=== PATIENT | female | born 1980 | race Caucasian/White ===

== ENCOUNTER → 2018-06-23 | Outpatient (CLI) | payer OTHER ==
[~2018-06-23] MED LIST: LBT100 PO; PRENTAB26 PO
[2018-06-23 11:24] LABS: ALBUMIN 3.8 gm/dl (3.4-5.0); ALKALINE PHOSPHATASE 39 U/L (45-117); ALT/SGPT 19 U/L (12-78); AST/SGOT 16 U/L (15-37); BLOOD UREA NITROGEN 12 mg/dl (7-18); CALCIUM 8.5 mg/dl (8.5-10.1); CARBON DIOXIDE 28 mmol/L (21-32); CHOLESTEROL 182 mg/dl (0-200); CREATININE 0.74 mg/dl (0.60-1.20); GLUCOSE 82 mg/dl (70-99); LDL CHOLESTEROL CALCULATED 114 mg/dl; POTASSIUM 3.7 mmol/L (3.5-5.1); SODIUM 139 mmol/L (136-145); TOTAL PROTEIN 7.3 gm/dl (6.4-8.2)
== END | disposition home or self-care (01) ==
LOC: C.LAB1850 09:34
PROVIDERS: ATTEND Nurse Practitioner Family
DX: I10 Essential (primary) hypertension (principal); Z13.220 Encounter for screening for lipoid disorders; Z13.1 Encounter for screening for diabetes mellitus

== ENCOUNTER 2020-11-29 17:26 | Inpatient (IN) ==
[2020-11-29] MEDS ORDERED: OXYTOCIN 30 UNITS/500 ML BAG IV PRN ×2 (18:07→18:45)
[2020-11-29] MEDS ORDERED: LABETALOL HCL IV 5 MG/ML 20ML IV STA ×2 (18:07→18:12)
[2020-11-29] MEDS ORDERED: PENICILLIN G POTASSIUM 3 MU in DEXTROSE 5% 100 ML IV PRN (18:09)
[2020-11-29] MEDS ORDERED: PENICILLIN G POTASSIUM 6 MU in DEXTROSE 5% 250 ML IV ONE (18:30)
[2020-11-29 18:41] LABS: Hematocrit (blood only) 31.4 % (37-47); Hemoglobin 10.3 g/dL (12.0-16.0); Mean Corpuscular Hemoglobin 28.3 pg (25-34); Mean Corpuscular Hgb Conc 32.8 g/dL (32-36); Mean Corpuscular Volume 86.3 fL (80-100); Mean Platelet Volume 9.9 fL (7.4-10.4); Platelet Count 328 K/uL (130-400); RDW Coefficient of Variation 12.9 % (11.5-14.5); RDW Standard Deviation 40.2 fL (36.4-46.3); Red Blood Count 3.64 M/uL (4.2-5.4); White Blood Count 11.12 K/uL (4.8-10.8)
[2020-11-29] MEDS ORDERED: MAG SULFATE 6GM BOLUS FROM BAG IV ONE (18:45)
--- NOTE | 2020-11-29 19:00 | History & Physical Report ---
Date of Service November 29, 2020 Assessment & Plan (1) Chronic hypertension affecting : (2) Severe pre-eclampsia in third trimester: 39yo at 37.4 weeks GA. cHTN with superimposed PreEclampsia with severe features. 1. Fetus: Cat 1 2: Labor: IOL for severe PIH. Pit/Guardado 3. PIH: Discussed mgso4 which she is agreeable with. IV labetalol 20mg now followed by normal daily po dose of 200mg BID. Labs pending 4: GBS positive: PCN 6: Rh negative: Rhogam eval PP 7: PPH: Moderate risk: Type and screen ordered (3) Carrier of group B Streptococcus: (4) Need for rhogam due to Rh negative mother: (5) Supervision of high risk , antepartum: History of Present Illness Primary Care Provider: Faith Crews MD 39yo at 37.4 weeks GA. Presents for extended monitoring and was noted to have persistent severe range BPs. She is also reporting LORD and has 1+ urine protein dip. complicated be chronic HTN on labetalol, AMA, Rh Negative, and GBS positive. OB Labs: Blood Type A Negative 05/02/20 Antibody Screen NEGATIVE 09/26/20 Hemoglobin 10.1 g/dL (12.0-16.0) L 10/28/20 Hematocrit 31.2 % (37-47) L 10/28/20 Mean Corpuscular Volume 89.4 fL (80-100) 10/28/20 Platelet Count 350 K/uL (130-400) 10/28/20 Rubella IgG Antibody Immune (Immune) 05/02/20 Rapid Plasma Reagin Nonreactive (Nonreactive) 05/02/20 Hepatitis B Surface Antigen Neg (Neg) 05/02/20 HIV (1&2) Ab and P24 Ag, 4th Gener Neg (Neg) 05/02/20 Glucose 1 Hour 50 gm Load 127 mg/dl (70-130) 09/26/20 OB Optional Labs: Chlamydia trachomatis RNA NOT DETECTED (NOT DETECTED) 04/30/20 Neisseria gonorrhoeae RNA NOT DETECTED (NOT DETECTED) 04/30/20 Thyroid Stimulating Hormone (TSH) 2.930 uIu/ml (0.300-4.500) 06/23/18 Allergies Allergy/AdvReac Type Severity Reaction Status Date / Time No Known Drug Allergies Allergy Unknown Verified 11/29/20 17:39 Home Medications Medication Instructions Recorded Confirmed Type prenat.vits,carlos,[id number] 1 tab PO DAILY 04/25/20 11/29/20 History aspirin [Aspir-81] 81 mg PO DAILY 10/25/20 11/29/20 History ferrous sulfate [Iron (ferrous 325 mg PO DAILY 10/25/20 11/29/20 History sulfate)] labetalol 200 mg PO BID 11/29/20 History Patient History Medical History (Updated 11/29/20 @ 18:54 by Vijay Smith MD) Conductive hearing loss of right ear with unrestricted hearing of left ear Encounter for anatomic survey History of kidney stones Hypertension Supervision of elderly multigravida Surgical History (Updated 11/29/20 @ 17:39 by Marcia Horton RN) H/O lithotripsy History of ankle surgery History of myringotomy History of tooth extraction Family History (Updated 04/25/20 @ 08:52 by Nunu Cordoba) Grandfather Myocardial infarction Father Prostate cancer Hypertension Migraine Family history of identical twins Mother Hypertension Dyslipidemia Brother No problems noted. Brother No problems noted. Brother No problems noted. Sister Hypertension Sister No problems noted. Other No family history of adverse response to anesthesia No family history of bleeding disorder Denies family history of Ovarian cancer Breast cancer Colorectal cancer Social History (Updated 04/25/20 @ 10:17 by Nunu Cordoba) Smoking Status: Never smoker Second Hand Exposure: No; Hx Alcohol Use: No Hx Substance Use: No Preferred Language: Ghanaian Communication Ability: Effective Visual Impairment: No Limitations Hearing Ability: Normal Operations Lead Required: No Beliefs That Will Affect Care: None marital status: marital status details: Jaspreet (39) [phone] Current Living Situation: Spouse and Family Current Living Situation Comment: lives with spouse, 4 children, no pets current occupational status: unemployed Other Information That Helps Us Care for You: No Feels Safe at Home: Yes Safety Concerns: Feels Safe At This Time Childhood Exposure to Second-Hand Smoke: No Dental Care, Regularly: Yes Physical Activity Frequency: Daily Seatbelt Use: always Sunscreen Use: Yes Assistive Devices: None Physical Exam Constitutional: WD/WN, vitals as above Respiratory: normal respiratory effort; no respiratory distress, no labored breathing and no retractions Cardiovascular: Rate/Rhythm: regular rate; not bradycardic and not tachycardic Gastrointestinal (Abdomen): Inspection/Auscultation: abdomen normal to insp ection Percussion/Palpation: abdomen soft; abdomen nontender, no guarding and abdomen not rigid Neurologic: patellar DTR's 2+ bilat, sensation intact Psychiatric: A+Ox3, euthymic affect Genitourinary: OB Exam Abdomen: + vertex (By US) Manual OB Exam: + cervical dilation (1.5), + cervical effacement 50% and + station -2 OB Exam Monitor Tracing: + external FHT monitor used, + external uterine monitor used, + category I and + normal FHT variability; no early decelerations present, no late decelerations present and no variable decelerations Results & Data ([facility]) Vital Signs (Past 12 Hours) Vital Signs Temp Pulse BP 11/29/20 18:18 78 183/104 H 11/29/20 18:07 76 174/101 H 11/29/20 17:58 73 199/107 H 11/29/20 17:47 36.6 C 78 188/109 H 11/29/20 17:35 80 180/113 H Coding Level of Care Code None Diagnoses Chronic hypertension affecting O10.919 Severe pre-eclampsia in third trimester O14.13 Carrier of group B Streptococcus Z22.330 Need for rhogam due to Rh negative mother Z29.13 Supervision of high risk , antepartum O09.90
[2020-11-29 19:01] LABS: Albumin Level 2.7 gm/dl (3.4-5.0); BUN Creatinine Ratio 19.2 (10-20); Calcium 8.5 mg/dl (8.5-10.1); Creatinine Clr Calc Pharmacy 119.1 ml/min; Est GFR (African American) 132.6; Est GFR (Non-African American) 114.4; Potassium 3.7 mmol/L (3.5-5.1)
[2020-11-29 19:04] LABS: Albumin Globulin Ratio 0.7 (0.9-2); Bilirubin,Total 0.3 mg/dl (0.2-1); Total Protein 6.7 gm/dl (6.4-8.2)
[2020-11-29] MEDS: LABETALOL HCL 200 MG TAB PO SCH (19:09)
[2020-11-29] MEDS: MAGNESIUM SULFATE / WTR 40 GM/1,000 ML BAG IV SCH (19:21)
[2020-11-29] MEDS: LACTATED RINGER'S 1,000 ML IV PRN (19:21)
[2020-11-29] MEDS: ONDANSETRON INJ 2 MG/ML 2 ML VIAL IV PRN (19:43)
[2020-11-29 20:27] LABS: Protein Creatinine Ratio Urine 0.6 (0-0.2); Total Protein Urine Random 54.6 mg/dl (0-11.9)
[2020-11-29] MEDS ORDERED: LABETALOL HCL 200 MG TAB PO SCH (21:00)
[2020-11-29] MEDS ORDERED: BUPIVACAINE 0.25% 30 ML VIAL ONE (21:51)
[2020-11-29] MEDS ORDERED: ePHEDrine sulfate 50 MG/ML AMP ONE (21:51)
[2020-11-29] MEDS ORDERED: SODIUM CHLORIDE 0.9% INJ 10 ML VIAL ONE (21:51)
[2020-11-29] MEDS ORDERED: fentaNYL 2MCG/ML ROPIVACAINE 1.25MG/ML 100 ML BAG EPI ONE (21:51)
[2020-11-29] MEDS ORDERED: fentaNYL citrate 100 MCG/2 ML VIAL ONE (21:51)
[2020-11-29] MEDS ORDERED: NALOXONE HCL 1 MG in SODIUM CHLORIDE 0.9% 1000ML 1,000 ML IV PRN (21:56)
[2020-11-29] MEDS ORDERED: ONDANSETRON INJ 2 MG/ML 2 ML VIAL IV PRN (21:56)
[2020-11-29] MEDS ORDERED: fentaNYL 2MCG/ML ROPIVACAINE 1.25MG/ML 100 ML BAG EPI PRN (21:56)
[2020-11-29] MEDS ORDERED: NALOXONE HCL 0.4 MG/1 ML VIAL/CARP IV PRN (21:56)
[2020-11-29] MEDS ORDERED: diphenhydrAMINE 50 MG/ML VIAL IV PRN (21:56)
[2020-11-29] MEDS ORDERED: ePHEDrine sulfate 50 MG/ML AMP IV PRN (21:56)
--- NOTE | 2020-11-29 21:59 | Anesthesiology Consultation ---
Date of Service November 29, 2020 Assessment & Plan (1) Encounter for pre-operative examination: Chart Review Chart Review: Patient NOT seen in Pre Admission Testing and Acceptable Risk for Labor Epidural Consults Requested none History Height/Weight Height: 5 ft 4 in Weight: 71.214 kg Allergies Allergy/AdvReac Type Severity Reaction Status Date / Time No Known Drug Allergies Allergy Unknown Verified 11/29/20 17:39 Medications Home Medications Medication Instructions Recorded Confirmed Last Taken prenat.vits,carlos,[id number] 1 tab PO DAILY 04/25/20 11/29/20 11/28/20 07:00 aspirin [Aspir-81] 81 mg PO DAILY 10/25/20 11/29/20 11/28/20 07:00 ferrous sulfate [Iron (ferrous 325 mg PO DAILY 10/25/20 11/29/20 11/29/20 07:00 sulfate)] labetalol 200 mg PO BID 11/29/20 11/29/20 07:00 Active Medications Generic Name Dose Route Start Last Admin Trade Name Freq PRN Reason Stop Dose Admin Lactated Ringer's 1,000 mls @ 125 mls/hr 11/29/20 18:07 11/29/20 22:05 Lr IV 12/01/20 18:06 75 mls/hr .Q8H PRN Infusion L&D Protocol Protocol Oxytocin 30 units in 500 mls @ 6 mls/hr 11/29/20 18:45 11/29/20 21:15 Pitocin IV 12/01/20 18:44 0.36 units/hr .Q24H PRN 6 mls/hr Labor Induction/Augmentation Titration Protocol 0.36 UNITS/HR Magnesium Sulfate 40 gm in 1,000 mls @ 50 mls/hr 11/29/20 18:45 11/29/20 19:52 Magnesium Sulfate / Wtr IV 12/29/20 18:44 50 mls/hr .Q20H DAO Infusion Labetalol HCl 200 mg 11/29/20 18:30 11/29/20 19:09 Labetalol Hcl 200 Mg Tab PO 12/29/20 18:29 200 mg BID DAO Administration Ondansetron HCl 4 mg 11/29/20 19:33 11/29/20 19:43 Ondansetron Inj 2 Mg/Ml 2 Ml Vial IV 12/29/20 19:32 4 mg Q4H PRN Administration Nausea Past Medical History Medical History Conductive hearing loss of right ear with unrestricted hearing of left ear Encounter for anatomic survey History of kidney stones Hypertension Supervision of elderly multigravida Exercise / Class Metabolic Activity II 4-5 Yardwork/Stairs/Walk up hill Past Family History Family History Grandfather Myocardial infarction Father Prostate cancer Hypertension Migraine Family history of identical twins Mother Hypertension Dyslipidemia Brother No problems noted. Brother No problems noted. Brother No problems noted. Sister Hypertension Sister No problems noted. Other No family history of adverse response to anesthesia No family history of bleeding disorder Denies family history of Ovarian cancer Breast cancer Colorectal cancer Past Surgical History Surgical History H/O lithotripsy History of ankle surgery History of myringotomy History of tooth extraction Past Anesthesia History No Hx of Anesthesia Complications and No Family Hx of Anesthesia Complications History of PONV No Hx of PONV Social History Smoking Status: Never smoker Hx Alcohol Use: No Hx Substance Use: No Physical Exam Vital Signs Last Vital Signs Temp 37.1 C 11/29/20 19:05 Pulse 77 11/29/20 22:27 Resp 18 11/29/20 22:05 BP 160/82 H 11/29/20 22:27 Pulse Ox 99 11/29/20 22:24 Testing Laboratory Results 11/29/20 18:24 11/29/20 18:24 Blood Type A Negative 11/29/20 18:24 Antibody Screen NEGATIVE 11/29/20 18:24
[2020-11-30 00:41] LABS: Hematocrit (blood only) 31.4 % (37-47); Hemoglobin 10.3 g/dL (12.0-16.0); Mean Corpuscular Hemoglobin 28.4 pg (25-34); Mean Corpuscular Hgb Conc 32.8 g/dL (32-36); Mean Corpuscular Volume 86.5 fL (80-100); Mean Platelet Volume 9.7 fL (7.4-10.4); Platelet Count 324 K/uL (130-400); RDW Coefficient of Variation 12.9 % (11.5-14.5); RDW Standard Deviation 40.1 fL (36.4-46.3); Red Blood Count 3.63 M/uL (4.2-5.4); White Blood Count 13.85 K/uL (4.8-10.8)
--- NOTE | 2020-11-30 00:52 | Labor Progress Brief Note ---
Date of Service November 30, 2020 Subjective Reason For Note: Routine Evaluation Assessment & Plan (1) Chronic hypertension affecting : (2) Severe pre-eclampsia in third trimester: 39yo at 37.4 weeks GA. cHTN with superimposed PreEclampsia with severe features. 1. Fetus: Cat 1 2: Labor: IOL for severe PIH. [place] 3. PIH: Discussed mgso4 which she is agreeable with. IV labetalol 20mg now followed by normal daily po dose of 200mg BID. Labs pending 4: GBS positive: PCN 6: Rh negative: Rhogam eval PP 7: PPH: Moderate risk: Type and screen ordered (3) Carrier of group B Streptococcus: (4) Need for rhogam due to Rh negative mother: (5) Supervision of high risk , antepartum: Admission and Anticipated Discharge Date Admission Date: November 29, 2020 Results & Data ([facility]) Vital Signs (Past 12 Hours) Vital Signs Temp Pulse Resp BP Pulse Ox 11/30/20 00:49 92 H 147/80 H 99 11/30/20 00:44 77 99 11/30/20 00:43 76 161/83 H 11/30/20 00:42 69 165/100 H 11/30/20 00:39 65 100 11/30/20 00:35 68 174/97 H 11/30/20 00:34 67 100 11/30/20 00:29 68 99 11/30/20 00:24 64 99 11/30/20 00:21 18 11/30/20 00:19 64 18 167/97 H 99 11/30/20 00:14 78 98 11/30/20 00:09 70 98 11/30/20 00:05 71 18 139/81 11/30/20 00:04 71 98 11/29/20 23:59 70 99 11/29/20 23:54 72 98 11/29/20 23:50 71 18 142/83 H 11/29/20 23:49 74 98 11/29/20 23:44 71 98 11/29/20 23:39 75 98 11/29/20 23:34 75 98 11/29/20 23:32 71 18 134/82 11/29/20 23:29 73 98 11/29/20 23:27 72 119/78 11/29/20 23:24 76 99 11/29/20 23:23 71 18 142/80 H 11/29/20 23:19 72 98 11/29/20 23:16 73 18 139/81 11/29/20 23:14 72 98 11/29/20 23:11 72 138/79 11/29/20 23:09 74 98 11/29/20 23:07 71 142/84 H 11/29/20 23:04 72 98 11/29/20 23:01 75 138/81 11/29/20 22:59 76 98 11/29/20 22:57 75 18 141/84 H 11/29/20 22:54 76 97 11/29/20 22:51 75 18 132/79 11/29/20 22:49 85 98 11/29/20 22:46 73 18 136/78 11/29/20 22:44 78 98 11/29/20 22:43 76 135/78 11/29/20 22:40 74 18 131/77 11/29/20 22:39 75 98 11/29/20 22:37 74 138/85 11/29/20 22:34 74 18 134/82 98 11/29/20 22:31 36.6 C 75 18 147/80 H 11/29/20 22:29 74 99 11/29/20 22:27 77 160/82 H 11/29/20 22:24 72 99 11/29/20 22:20 18 11/29/20 22:19 74 189/101 H 98 11/29/20 22:14 77 98 11/29/20 22:09 88 99 11/29/20 22:05 81 18 158/93 H 11/29/20 22:04 80 98 11/29/20 21:59 76 98 11/29/20 21:54 76 98 11/29/20 21:49 76 160/80 H 97 11/29/20 21:44 75 98 11/29/20 21:39 73 98 11/29/20 21:34 72 98 11/29/20 21:33 70 18 147/95 H 11/29/20 21:29 72 98 11/29/20 21:24 75 99 11/29/20 21:20 18 11/29/20 21:19 75 98 11/29/20 21:18 76 18 147/95 H 11/29/20 21:14 73 98 11/29/20 21:09 76 97 11/29/20 21:05 69 18 157/91 H 11/29/20 21:04 73 98 11/29/20 20:59 74 99 11/29/20 20:54 74 99 11/29/20 20:50 71 156/94 H 11/29/20 20:49 74 98 11/29/20 20:44 74 99 11/29/20 20:39 75 99 11/29/20 20:34 72 163/83 H 98 11/29/20 20:30 75 154/91 H 11/29/20 20:29 82 98 11/29/20 20:24 79 97 11/29/20 20:20 18 11/29/20 20:19 77 98 11/29/20 20:18 78 18 149/86 H 11/29/20 20:14 80 98 11/29/20 20:09 78 98 11/29/20 20:04 83 98 11/29/20 20:03 77 151/88 H 11/29/20 19:59 92 H 98 11/29/20 19:58 85 18 144/86 H 11/29/20 19:54 87 97 11/29/20 19:53 96 H 193/105 H 11/29/20 19:49 81 98 11/29/20 19:48 80 151/84 H 11/29/20 19:44 90 99 11/29/20 19:43 88 155/86 H 11/29/20 19:39 85 97 11/29/20 19:38 88 178/97 H 11/29/20 19:34 85 98 11/29/20 19:33 88 18 154/94 H 11/29/20 19:29 81 99 11/29/20 19:28 80 170/96 H 11/29/20 19:24 80 100 11/29/20 19:23 75 18 179/98 H 11/29/20 19:21 18 11/29/20 19:17 71 18 178/102 H 11/29/20 19:05 37.1 C 18 11/29/20 19:03 73 193/103 H 11/29/20 18:18 78 183/104 H 11/29/20 18:07 76 174/101 H 11/29/20 17:58 73 199/107 H 11/29/20 17:47 36.6 C 78 188/109 H 11/29/20 17:35 80 180/113 H Coding Level of Care Code None Diagnoses Chronic hypertension affecting O10.919 Severe pre-eclampsia in third trimester O14.13 Carrier of group B Streptococcus Z22.330 Need for rhogam due to Rh negative mother Z29.13 Supervision of high risk , antepartum O09.90
[2020-11-30] MEDS ORDERED: ACETAMINOPHEN 500 MG TAB PO PRN (00:55)
[2020-11-30] MEDS ORDERED: ACETAMINOPHEN 500 MG TAB ONE (01:06)
[2020-11-30 01:11] LABS: Albumin Globulin Ratio 0.6 (0.9-2); Albumin Level 2.5 gm/dl (3.4-5.0); BUN Creatinine Ratio 13.3 (10-20); Bilirubin,Total 0.3 mg/dl (0.2-1); Calcium 7.9 mg/dl (8.5-10.1); Creatinine Clr Calc Pharmacy 98.4 ml/min; Est GFR (African American) 117.2; Est GFR (Non-African American) 101.1; Globulin 3.9 gm/dl (2.5-4.0); Magnesium Therapeutic L&D Only 5.4 mg/dL (4.0-8.0); Potassium 3.9 mmol/L (3.5-5.1); Total Protein 6.4 gm/dl (6.4-8.2)
[2020-11-30] MEDS ORDERED: OXYTOCIN 30 UNITS/500 ML BAG IV PRN (03:36)
[2020-11-30] MEDS ORDERED: bisacodyL 10 MG SUPP PR PRN (03:36)
[2020-11-30] MEDS ORDERED: HYDROCORTISONE ACETATE 25 MG SUPP PR PRN (03:36)
[2020-11-30] MEDS ORDERED: BENZOCAINE 20% AER SPR 82.5 GM CAN EXT PRN (03:36)
[2020-11-30] MEDS ORDERED: SUPERCREAM 0.870% 15 GM JAR EXT PRN (03:36)
[2020-11-30] MEDS ORDERED: DIPHTHERIA/TETANUS/PERTUSSIS 0.5 ML SYR/VIAL IM ONE (03:36)
[2020-11-30] MEDS ORDERED: ACETAMINOPHEN 325 MG TAB PO PRN (03:36)
[2020-11-30] MEDS: LACTATED RINGER'S 1,000 ML IV PRN ×2 (04:08→17:33)
[2020-11-30] MEDS ORDERED: LABETALOL HCL IV 5 MG/ML 20ML IV STA (04:17)
[2020-11-30] MEDS: IBUPROFEN 600 MG TAB PO PRN ×2 (04:39→15:02)
[2020-11-30 07:30] LABS: Albumin Level 2.2 gm/dl (3.4-5.0); BUN Creatinine Ratio 12.7 (10-20); Calcium 7.1 mg/dl (8.5-10.1); Creatinine Clr Calc Pharmacy 105.5 ml/min; Est GFR (African American) 127.4; Est GFR (Non-African American) 109.9; Potassium 3.9 mmol/L (3.5-5.1)
[2020-11-30 07:33] LABS: Albumin Globulin Ratio 0.6 (0.9-2); Bilirubin,Total 0.3 mg/dl (0.2-1); Globulin 3.6 gm/dl (2.5-4.0); Total Protein 5.8 gm/dl (6.4-8.2)
[2020-11-30] MEDS: DOCUSATE SODIUM 100 MG CAP PO SCH ×2 (08:03→20:49)
[2020-11-30] MEDS: PRENATAL VITAMIN 1 TAB PO SCH (08:03)
[2020-11-30] MEDS: LABETALOL HCL 200 MG TAB PO SCH ×2 (08:04→20:49)
[2020-11-30] MEDS: ONDANSETRON INJ 2 MG/ML 2 ML VIAL IV PRN (09:15)
--- NOTE | 2020-11-30 09:28 | Anesthesia Procedure Note ---
Date of Service November 30, 2020 Anesthesia Post Epidural Note Vital Signs Vital Signs: Temp Pulse Resp BP Pulse Ox 36.7 C 75 20 118/72 98 11/30/20 07:11 11/30/20 09:24 11/30/20 08:00 11/30/20 08:56 11/30/20 09:24 Pain Intensity Head: Pain Intensity: 4 Notes Mental Status: alert / awake / arousable and participated in evaluation Nausea / Vomiting: adequately controlled Pain: adequately controlled Airway Patency, RR, SpO2: stable & adequate BP & HR: stable & adequate Hydration State: stable & adequate Neuraxial Anesthesia: was administered and sensory block is resolving Anesthetic Complications: no major complications apparent Epidural: Removed without complications and With tip intact
--- NOTE | 2020-11-30 10:31 | Delivery Summary ---
DATE OF OPERATION: 11/30/2020 PROCEDURE: Normal spontaneous vaginal delivery with second-degree perineal laceration repair. SURGEON: Vijay Smith MD PREOPERATIVE DIAGNOSES: 1. Single intrauterine at 37 weeks 5 days gestational age. 2. Chronic hypertension with superimposed preeclampsia with severe features. 3. GBS positive. 4. Rh negative. 5. Advanced maternal age. POSTOPERATIVE DIAGNOSES 1. Single intrauterine at 37 weeks 5 days gestational age. 2. Chronic hypertension with superimposed preeclampsia with severe features. 3. GBS positive. 4. Rh negative. 5. Advanced maternal age. 6. Status post delivery. ESTIMATED BLOOD LOSS: 200 mL. DRAINS: Guardado catheter removed during delivery and replaced immediately following completion of delivery. COMPLICATIONS: None. INDICATIONS: Kelsie is a 39-year-old G5, P4, who presented for extended monitoring from the office. While being monitored, the patient was noted to have persistent severe range blood pressures requiring IV labetalol. At that time, the patient was diagnosed with chronic hypertension with superimposed preeclampsia with severe features. The diagnosis was discussed with her. The patient was started on magnesium for seizure prophylaxis and was maintained on home labetalol with IV as needed. The patient's induction course started with Guardado balloon and oxytocin per regular protocol. Penicillin was started and after she was completed on penicillin, she underwent artificial rupture of membranes for clear fluid. The patient quickly progressed in labor to complete, complete +1 station, at which time she felt the urge to push and pushed for approximately 2 contractions to achieve delivery. DESCRIPTION OF PROCEDURE: The patient progressed to 10 cm dilated, 100% effaced, +1 station, pushed over intact perineum with epidural anesthesia and delivered a viable with weight and Apgars pending. Head of the delivered in RIA position, restituted to left transverse. A single nuchal cord was noted, which was easily reduced. Body and shoulders quickly followed. was noted to be vigorous upon delivery and 1-minute delayed cord clamping was initiated. Cord was then double clamped and cut. remained on maternal abdomen. The attention was then turned to deliver the placenta, it was delivered intact, 3-vessel cord, gentle cord traction. On inspection of perineum, vagina, and cervix, there was noted to be a very small second-degree perineal laceration, which was repaired with a traditional crown stitch. Needle, sponge, and instrument counts were correct at the completion of the case with mother and stable in the immediate post-delivery period. The patient was maintained on magnesium following delivery with plan to continue for 12-24 hours pending response to treatment and delivery. I attest to the content of the Intraoperative Record and any orders documented therein. Any exception s are noted below.
[2020-11-30] MEDS: MAGNESIUM SULFATE / WTR 40 GM/1,000 ML BAG IV SCH (11:22)
[2020-12-01 07:25] LABS: Hematocrit (blood only) 24.8 % (37-47); Mean Corpuscular Hemoglobin 28.2 pg (25-34); Mean Corpuscular Hgb Conc 32.3 g/dL (32-36); Mean Corpuscular Volume 87.3 fL (80-100); Mean Platelet Volume 9.2 fL (7.4-10.4); Platelet Count 288 K/uL (130-400); RDW Coefficient of Variation 13.4 % (11.5-14.5); RDW Standard Deviation 42.4 fL (36.4-46.3); Red Blood Count 2.84 M/uL (4.2-5.4); White Blood Count 10.43 K/uL (4.8-10.8)
[2020-12-01] MEDS: PRENATAL VITAMIN 1 TAB PO SCH (07:44)
[2020-12-01] MEDS: DOCUSATE SODIUM 100 MG CAP PO SCH (07:44)
[2020-12-01] MEDS: LABETALOL HCL 200 MG TAB PO SCH (07:44)
[2020-12-01 07:58] LABS: Calcium 6.9 mg/dl (8.5-10.1); Creatinine Clr Calc Pharmacy 97.1 ml/min; Est GFR (African American) 115.3; Est GFR (Non-African American) 99.5
[2020-12-01 08:01] LABS: Albumin Globulin Ratio 0.6 (0.9-2); Bilirubin,Total 0.2 mg/dl (0.2-1); Globulin 3.2 gm/dl (2.5-4.0); Total Protein 5.2 gm/dl (6.4-8.2)
--- NOTE | 2020-12-01 08:16 | Obstetrical Progress Note ---
Date of Service December 01, 2020 Assessment & Plan (1) Encounter for care and examination after delivery: BP's improved since delivery continue labetalol 200mg bid may discharge later today if BP's stable follow up in 1 week for BP check. Subjective Ambulation: ambulating normally Voiding: no voiding problems Diet Tolerance:: regular diet Lochia:: Small Feeding Type:: breast feeding headache getting better. no other PIH symptoms Physical Exam Constitutional WD/WN, vitals as above Psychiatric A+Ox3, euthymic affect Genitourinary OB Exam Abdomen: + fundal height Fundus: + firm and + relation to umbilicus (2 below U) Results & Data ([facility]) Vital Signs (Past 12 Hours) Vital Signs Temp Pulse Resp BP 12/01/20 07:29 97.9 F 92 H 20 134/84
[2020-12-01 16:40] VITALS: BP 152/83; PULSE 88; TEMP 99; O2SAT 96
[2020-12-01] MEDS ORDERED: bisacodyL 5 MG TABEC PO SCH (20:00)
== END 2020-12-01 18:29 | disposition home or self-care (01) | DRG 807 ==
LOC: 4S1 17:26 → OPB 17:26 → 4S1 18:37 → 4S2 11-30 21:20